=== PATIENT | female | born 1970 | race American Indian/Alaskan Native ===

== ENCOUNTER 2017-07-25 08:37 | Emergency (ER) | payer SELFPAY ==
[2017-07-25 09:15] LABS: Basophils % (Auto) 0.5 % (0.0-1.8); Eosinophils # (Auto) 0.1 K/mm3 (0.0-0.4); Hematocrit 25.1 % (30.3-42.9); Hemoglobin 8.1 gm/dl (10.1-14.3); Lymphocytes # (Auto) 0.8 K/mm3 (1.2-5.4); Lymphocytes % (Auto) 15.7 % (13.4-35.0); Mean Corpuscular HGB Conc 32 % (30-34); Mean Corpuscular Hemoglobin 24 pg (28-32); Mean Corpuscular Volume 74 fl (79-97); Monocytes # (Auto) 0.4 K/mm3 (0.0-0.8); Monocytes % (Auto) 6.9 % (0.0-7.3); Platelet Count 392 K/mm3 (140-440); Red Blood Count 3.38 M/mm3 (3.65-5.03); Red Cell Distribution Width 18.4 % (13.2-15.2)
[2017-07-25 09:29] LABS: INR 1.04 (0.87-1.13)
[2017-07-25 09:59] LABS: Alanine Aminotransferase 9 units/L (7-56); BUN/Creatinine Ratio 13; Blood Urea Nitrogen 12 mg/dL (7-17); Hemolysis Index 19; Lipase 27 units/L (13-60)
[2017-07-25] MEDS ORDERED: NACL 0.9% 1000 ML 1,000 ML IV ONE (10:32)
--- NOTE | 2017-07-25 11:02 | Emergency Department Report ---
ED Shortness of Breath HPI - General Chief Complaint: Weakness Stated Complaint: DIZZY Time Seen by Provider: 07/25/17 10:21 Source: patient Mode of arrival: Ambulatory Limitations: No Limitations - History of Present Illness Initial Comments: 47-year-old female with a past medical history of depression and iron deficiency anemia presents to the hospital with complains of dyspnea on exertion , lightheadachedness, nausea, and fatigue that started upon waking this morning. Patient has had similar symptoms in the past related to anemia as required blood iron transfusions. She is not currently taking her iron tablets. Patient also frequently travels in has been back and forth to [place] for the past 3 weeks and recently returned to [place] on the fourth. Patient denies chest pain, calf tenderness, edema, history of PE/DVT. On the she states she was at a hospital in [place] and states her hemoglobin was "6.1" she was treated with IV fluids without blood transfusion and was subsequently discharged. - Related Data Home Medications Medication Instructions Recorded Confirmed Last Taken Bupropion HCl [Wellbutrin XL] 300 mg PO QDAY 07/25/17 07/25/17 Unknown Ergocalciferol [Vitamin D2] 1 cap PO QWEEK 07/25/17 07/25/17 Unknown Melatonin 5 mg PO HS 07/25/17 07/25/17 Unknown Multivit-Min/Iron/Folic/[id number] 1 each PO DAILY 07/25/17 07/25/17 Unknown [Hair, Skin and Nails Tablet] Allergies Allergy/AdvReac Type Severity Reaction Status Date / Time latex Allergy Unknown Verified 07/25/17 08:39 ED Review of Systems ROS: Stated complaint: DIZZY Other details as noted in HPI Comment: All other systems reviewed and negative ED Past Medical Hx - Past Medical History Previous Medical History?: Yes Hx Psychiatric Treatment: Yes (depression) Additional medical history: Anemia, Iron transfusions - Surgical History Past Surgical History?: No - Social History Smoking Status: Never Smoker Substance Use Type: Prescribed - Medications Home Medications: Home Medications Medication Instructions Recorded Confirmed Last Taken Type Bupropion HCl [Wellbutrin XL] 300 mg PO QDAY 07/25/17 07/25/17 Unknown History Ergocalciferol [Vitamin D2] 1 cap PO QWEEK 18 07/25/17 Unknown History Melatonin 5 mg PO HS 05/07/18 05/07/18 Unknown History Multivit-Min/Iron/Folic/Ruu617 1 each PO DAILY 07/25/17 07/25/17 Unknown History [Hair, Skin and Nails Tablet] ED Physical Exam - General Limitations: No Limitations - Other Other exam information: General: No limitations, patient is alert in no acute distress Head exam: Atraumatic, normocephalic Eyes exam: Normal appearance, pupils equal reactive to light, extraocular movements intact. Visual acuity without corrective lenses left eye 20/20, right eye 20/25, both eyes 20/25 ENT: Moist mucous membrane, normal oropharynx Neck exam: Normal inspection, full range of motion, no meningismus nontender Respiratory exam: Clear to auscultation bilateral, no wheezes, rales, crackles Cardiovascular: Normal rate and rhythm, normal heart sounds Abdomen: Soft, nondistended, and nontender, with normal bowel sounds, no rebound, or guarding Extremity: Full range of motion normal inspection no deformity, no calf tenderness or edema Back: Normal Inspection, full range of motion, no tenderness Neurologic: Alert, oriented x3, cranial nerves intact, no motor or sensory deficit Psychiatric: normal affect, normal mood Skin: Warm, dry, intact ED Course Vital Signs 07/25/17 07/25/17 07/25/17 08:39 09:12 09:15 Temperature 98.4 F Pulse Rate 106 H 80 75 Pulse Rate [ Lying] Pulse Rate [ Sitting] Pulse Rate [ Standing] Respiratory 18 28 H 30 H Rate Blood Pressure 112/76 129/66 Blood Pressure [Left] Blood Pressure [Lying] Blood Pressure [Sitting] Blood Pressure [Standing] O2 Sat by Pulse 100 100 100 Oximetry 07/25/17 07/25/17 07/25/17 09:30 09:33 09:45 Temperature Pulse Rate 64 65 Pulse Rate [ Lying] Pulse Rate [ Sitting] Pulse Rate [ Standing] Respiratory 21 32 H 10 L Rate Blood Pressure 121/64 121/64 Blood Pressure [Left] Blood Pressure [Lying] Blood Pressure [Sitting] Blood Pressure [Standing] O2 Sat by Pulse 100 100 Oximetry 07/25/17 07/25/17 07/25/17 10:00 10:15 10:31 Temperature Pulse Rate 62 71 79 Pulse Rate [ Lying] Pulse Rate [ Sitting] Pulse Rate [ Standing] Respiratory 16 12 22 Rate Blood Pressure 127/68 127/68 Blood Pressure 120/73 [Left] Blood Pressure [Lying] Blood Pressure [Sitting] Blood Pressure [Standing] O2 Sat by Pulse 100 100 100 Oximetry 07/25/17 07/25/17 12:00 12:15 Temperature Pulse Rate Pulse Rate [ 70 Lying] Pulse Rate [ 69 Sitting] Pulse Rate [ 73 Standing] Respiratory 18 Rate Blood Pressure Blood Pressure 128/57 [Left] Blood Pressure 104/58 [Lying] Blood Pressure 118/61 [Sitting] Blood Pressure 112/64 [Standing] O2 Sat by Pulse 100 Oximetry - Reevaluation(s) Reevaluation #1: 07/25/17 12:47 Patient room air O2 sat 100%. Tolerating exertion without difficulty. When reassessed at this time patient states that her head "feels fuzzy and cloudy". When asked to clarify she says her vision appears to be a little blurry. Apparently this has been present since her initial presentation but only mentioned at this point. Patient denies any headache. Neurologic exam performed NIH score of 0. Visual acuity testing ordered a CT will be performed. Post IVF orthostatics unremarkable ED Medical Decision Making - Lab Data Result diagrams: 07/25/17 08:57 07/25/17 08:57 Lab Results 07/25/17 07/25/17 07/25/17 Range/Units 08:57 08:57 08:57 WBC 5.4 (4.5-11.0) K/mm3 RBC 3.38 L (3.65-5.03) M/mm3 Hgb 8.1 L (10.1-14.3) gm/dl Hct 25.1 L (30.3-42.9) % MCV 74 L (79-97) fl MCH 24 L (28-32) pg MCHC 32 (30-34) % RDW 18.4 H (13.2-15.2) % Plt Count 392 (140-440) K/mm3 Lymph % (Auto) 15.7 (13.4-35.0) % Petroleum % (Auto) 6.9 (0.0-7.3) % Eos % (Auto) 1.0 (0.0-4.3) % Baso % (Auto) 0.5 (0.0-1.8) % Lymph # 0.8 L (1.2-5.4) K/mm3 Petroleum # 0.4 (0.0-0.8) K/mm3 Eos # 0.1 (0.0-0.4) K/mm3 Baso # 0.0 (0.0-0.1) K/mm3 Seg Neutrophils % 75.9 H (40.0-70.0) % Seg Neutrophils # 4.1 (1.8-7.7) K/mm3 PT 14.1 (12.2-14.9) Sec. INR 1.04 (0.87-1.13) APTT 31.0 (24.2-36.6) Sec. D-Dimer (0-234) ng/mlDDU Sodium 135 L (137-145) mmol/L Potassium 4.1 (3.6-5.0) mmol/L Chloride 99.6 (98-107) mmol/L Carbon Dioxide 21 L (22-30) mmol/L Anion Gap 19 mmol/L BUN 12 (7-17) mg/dL Creatinine 0.9 (0.7-1.2) mg/dL Estimated GFR > 60 ml/min BUN/Creatinine Ratio 13 % Glucose 129 H (65-100) mg/dL Calcium 9.0 (8.4-10.2) mg/dL Total Bilirubin 0.20 (0.1-1.2) mg/dL AST 17 (5-40) units/L ALT 9 (7-56) units/L Alkaline Phosphatase 59 (35-129) units/L Total Protein 7.3 (6.3-8.2) g/dL Albumin 4.0 (3.9-5) g/dL Albumin/Globulin Ratio 1.2 % Lipase 27 (13-60) units/L HCG, Qual (Negative) Blood Type Antibody Screen 07/25/17 07/25/17 07/25/17 Range/Units 08:57 08:57 08:57 WBC (4.5-11.0) K/mm3 RBC (3.65-5.03) M/mm3 Hgb (10.1-14.3) gm/dl Hct (30.3-42.9) % MCV (79-97) fl MCH (28-32) pg MCHC (30-34) % RDW (13.2-15.2) % Plt Count (140-440) K/mm3 Lymph % (Auto) (13.4-35.0) % Petroleum % (Auto) (0.0-7.3) % Eos % (Auto) (0.0-4.3) % Baso % (Auto) (0.0-1.8) % Lymph # (1.2-5.4) K/mm3 Petroleum # (0.0-0.8) K/mm3 Eos # (0.0-0.4) K/mm3 Baso # (0.0-0.1) K/mm3 Seg Neutrophils % (40.0-70.0) % Seg Neutrophils # (1.8-7.7) K/mm3 PT (12.2-14.9) Sec. INR (0.87-1.13) APTT (24.2-36.6) Sec. D-Dimer 136.72 (0-234) ng/mlDDU Sodium (137-145) mmol/L Potassium (3.6-5.0) mmol/L Chloride (98-107) mmol/L Carbon Dioxide (22-30) mmol/L Anion Gap mmol/L BUN (7-17) mg/dL Creatinine (0.7-1.2) mg/dL Estimated GFR ml/min BUN/Creatinine Ratio % Glucose (65-100) mg/dL Calcium (8.4-10.2) mg/dL Total Bilirubin (0.1-1.2) mg/dL AST (5-40) units/L ALT (7-56) units/L Alkaline Phosphatase (35-129) units/L Total Protein (6.3-8.2) g/dL Albumin (3.9-5) g/dL Albumin/Globulin Ratio % Lipase (13-60) units/L HCG, Qual Negative (Negative) Blood Type A POSITIVE Antibody Screen Negative - EKG Data -: EKG Interpreted by Nv EKG shows normal: sinus rhythm, axis (qrs 60), QRS complexes (qrsd 96), ST-T waves (no stemi/t inv) Rate: normal (71) - EKG Data When compared to previous EKG there are: previous EKG unavailable - Radiology Data Radiology results: report reviewed cxr: [facility] ct head: naf - Medical Decision Making Wells criteria for PE score equals 0 plus negative d-dimer cxr neg anemia with hgb 8.1 encouraged to continue iron tablets f/u with her adjusto writer operator at [facility] this week - Differential Diagnosis PE, anemia, anxiety, dehydration, arrhythmia Critical Care Time: No Critical care attestation.: If time is entered above; I have spent that time in minutes in the direct care of this critically ill patient, excluding procedure time. ED Disposition Clinical Impression: Light-headed feeling, Iron deficiency anemia Disposition: TO HOME OR SELFCARE Is pt being admited?: No Does the pt Need Aspirin: No Condition: Stable Instructions: Iron Deficiency Anemia (ED), Lightheadedness (ED) Additional Instructions: Taking iron tablets as prescribed. Follow-up with your adjusto writer operator. Return if symptoms worsen as indicated by your discharge instructions Referrals: PRIMARY CARE, [Primary Care Provider] - 3-5 Days [facility] [Provider Group] - 3-5 Days Time of Disposition: 13:49 - Assessment Assessment Interval: Baseline - Level of Consciousness 1a. Level of Consciousness: alert - LOC Questions 1b. LOC Questions: answers correctly - LOC Command 1c. LOC Commands: performs tasks correctly - Best Gaze 2. Best Gaze: normal - Visual 3. Visual: no visual loss - Facial Palsy 4. Facial Palsy: normal symmetrical movement - Motor Arm 5b. Motor Arm Right: no drift 5a. Motor Arm Left: no drift - Motor Leg 6a. Motor Leg Left: no drift 6b. Motor Leg Right: no drift - Limb Ataxia 7. Limb Ataxia: absent - Sensory 8. Sensory: normal - Best Language 9. Best Language: no aphasia - Dysarthria 10. Dysarthria: normal - Extinction and Inattention 11. Extinction/Inattention: no abnormality - Scoring Total Score: 0 Stroke Severity: No Stroke Symptoms
--- NOTE | 2017-07-25 11:40 | XRay Report ---
ROUTINE CHEST, TWO VIEWS: HISTORY: Dyspnea on exertion. The trachea, heart, mediastinal contour, lung thomas and bony thorax are unremarkable. IMPRESSION: Unremarkable chest x-ray.
[2017-07-25 12:15] VITALS: BP 128/57
--- NOTE | 2017-07-25 13:36 | Cat Scan Report ---
CT HEAD WITHOUT CONTRAST: HISTORY: Light headedness, cloudy vision. TECHNIQUE: Sequential 2.5mm CT images. COMPARISON: none. FINDINGS: Cerebral Parenchyma: Within normal limits. Cerebellum: Within normal limits. Brainstem: Within normal limits. Ventricles: Normal. Sella: Normal. Extra-axial spaces: Normal. Basal Cisterns: Normal. Intracranial Hemorrhage: None. Midline Shift: None. Calvarium: Normal. Sinuses: Normal. Mastoid Air Cells: Normal. Visualized Orbits: Normal. IMPRESSION: Cranial CT scan within normal limits.
== END 2017-07-25 14:17 | disposition home or self-care (01) ==
LOC: ED 08:37
DX: D50.9 Iron deficiency anemia, unspecified (principal); Z91.040 Latex allergy status; F32.9 Major depressive disorder, single episode, unspecified
CPT/HCPCS: 36415; 70450; 71046; 80053; 83690; 84703; 85025; 85379; 85610; 85730; 86850; 86900; 86901; 93005; 93010; 96360; 99284; J7030